=== PATIENT | male | born 1960 | race Caucasian/White ===

== ENCOUNTER 2024-09-11 09:51 | Outpatient (AMB) | payer OTHER, SELFPAY ==
[2024-09-11 10:02] VITALS: BP 132/84; PULSE 72; TEMP 37.2; O2SAT 97; BMI 33.3
--- NOTE | 2024-09-11 10:02 | MHC.PC.OV ---
Vital Signs 09/11/24 10:02 Height 5 ft 9 in Weight 225 lb 9.6 oz BMI 33.3 BP 132/84 Blood Pressure Location Lt brachial Position Sitting Pulse 72 Pulse Source Pulse Oximeter Temp 98.9 F Temp Source Oral Pulse Oximetry (%) 97 Oxygen Delivery Method Room Air Intake Visit Reasons: establish care Intake Note: Patient is a new patient here to establish care. Transferring care from Dr. Nesbitt in [place], [place]. Medical records have been requested and have been received. Sustainability Manager Required: No Accompanied by: Self / Same As Patient Allergies No Known Allergies [No Known Allergies*] Allergy (Verified 09/11/24 10:24) Medication List - Last Reconciled 09/11/24 by KATELYNN Marin glucosamine HCl 500 mg PO DAILY [id number] mcg (Centrum Silver Men) 1 tab PO DAILY rosuvastatin 20 mg PO DAILY Tobacco use date assessed: 09/11/24 Fall risk assessment: No Falls in past year Last assessed Fall Risk: 09/11/24 Dental Screening Dental Screen Date: 09/11/24 Did you have a dental visit in the last 12 months?: Yes Did you have a dental problem in the last 6 months where you did not have access to dental care?: No Was dental information given to patient?: Patient has dentist HPI establish care HPI Details Previous PCP: Dr. Nesbitt, in [place] Last visit: Last PE: July Specialist: no OBGYN:n/a Past medical history: hld/colonoscopy 3 years, recently done, hernia operation a year ago right groin. Medications: Family HX: brother prostate CA Problem: The patient is a 64-year-old male presenting with concerns regarding prostate health and nocturia. He reports nocturia, urinating two to three times a night, and is concerned about this due to his family history of prostate cancer. He has a known history of elevated cholesterol and underwent surgery for a right groin hernia approximately one year ago. His recent medical evaluations at the [facility] have included a physical, blood work, and a PSA test (0.84), the latter of which returned normal results. He undergoes colonoscopic evaluations every three years and last completed this [facility] few [facility]. The patient?s management of cholesterol involves medication obtained through [facility] services, though no other significant past medical history was noted besides the hernia repair. [facility] Medical History (Updated 09/15/24 @ 04:27 by KATELYNN Marin) HLD (hyperlipidemia) Surgical History History of anal fistulotomy Hx of hernia repair Hx of appendectomy Family History Brother Prostate cancer Daughter Breast cancer Social History Household Members: Spouse Housing: House Alcohol intake: current Alcohol intake frequency: a few times a week Alcohol type: wine Patient Tobacco Use Status: Never used Tobacco Tobacco use type: Cigarette e-Cigarette/Vaping Use: Never Used Second Hand Smoke Exposure: No service: Yes Current occupational status: retired Cognitive needs: No Hearing needs: Yes Vision needs: Yes (Glasses) Questionnaire PHQ-9 Over the last 2 weeks, how often have you been bothered by any of the following problems? 1. Little interest or pleasure in doing things: not at all 2. Feeling down, depressed, or hopeless: not at all 3. Trouble falling or staying asleep, or sleeping too much: not at all 4. Feeling tired or having little energy: not at all 5. Poor appetite or overeating: not at all 6. Feeling bad about yourself - or that you are a failure or have let yourself or your family down: not at all 7. Trouble concentrating on things, such as reading the newspaper or watching television: not at all 8. Moving or speaking so slowly that other people could have noticed. Or the opposite - being so fidgety or restless that you have been moving around a lot more than usual: not at all 9. Thoughts that you would be better off or of hurting yourself in some way: not at all Total score: 0 Depression Screening Interpretation: Negative Depression Screening Done: Yes 95915 - PHQ-9 Billing: Yes Source: Developed by Drs. Alex Monroy, Tamiko Gimenez, Fuad Barrios and colleagues, with an educational raj from [employer]. Thrive Questionnaire Date Thrive assessed: 09/11/24 I am a: Patient What is your living situation today?: I have a steady place to live Within the past 12 months, did the food you bought not last and you didn't have the money to get more?: Never true Within the past 12 months, did you worry whether your food would run out before you got money to buy more?: Never true Do you have trouble paying for medicines?: No Do you have trouble getting transportation to medical appointments?: No Do you have trouble paying your heating and electricity bill?: No Do you have trouble taking care of your child, family member or friend?: No Do you have trouble with day-to-day activities such as bathing, preparing meals, shopping, managing finances, etc.?: No Are you currently unemployed and looking for a job?: No Are you interested in more education?: No Please select the resources that you would like help with: None Currently or been in a relationship where the following occur: No concerns reported THRIVE Score: 0 AUDIT C Alcohol Use Questionnaire (AUDIT-C) 1. How often do you have a drink containing alcohol?: 4 or more times a week 2. How many drinks containing alcohol do you have on a typical day when you are drinking?: 1 or 2 3. How often do you have six or more drinks on one occasion?: Monthly Total Score: 6 Score Reviewed/Action Taken: Yes SHIV-7 AMB Questionnaire SHIV-7 Date SHIV - 7 assessed: 09/11/24 Feeling nervous, anxious, or on edge: 0 = Not at all Not being able to stop or control worryin = Not at all Worrying too much about different things: 0 = Not at all Trouble relaxin = Not at all Being so restless that it is hard to sit still: 0 = Not at all Becoming easily annoyed or irritable: 0 = Not at all Feeling afraid as if something awful might happen: 0 = Not at all Total SHIV-7 score (0-4 normal; 5-9 mild; 10-14 moderate; 15-21 severe): 0 Source: Developed by Drs. Alex Monroy, Tamiko Gimenez, Fuad Barrios and colleagues, with an educational raj from [employer]. SHIV-7 Assessment Billing SHIV-7 Assessment Tool: SHIV-7 Assessment 38415 Review of Systems Const Denies headache(s) Eyes Denies loss of vision ENT Denies vertigo, Denies dizziness, Denies headache(s) and Denies sore throat Card Denies chest pain, Denies leg edema and Denies lightheadedness Resp Denies cough, Denies hemoptysis and Denies wheezing GI Denies abdominal pain, Denies melena, Denies constipation, Denies diarrhea and Denies vomiting Denies dysuria, Reports nocturia and Denies urinary urgency Musc Denies arthralgias, Denies joint swelling, Denies numbness and Denies tingling Neuro Denies Abnormal speech present, Denies behavioral changes, Denies vertigo, Denies dizziness, Denies headache(s), Denies loss of vision, Denies memory loss, Denies numbness and Denies tingling Psych Denies anxiety, Denies behavioral changes, Denies depression, Denies memory loss and Denies panic attacks Claude/Lymph Denies easy bleeding and Denies easy bruising Aller/Immun Denies wheezing Physical exam (Primary Care) Vital Signs: Last Vital Signs Temp 98.9 F 09/11/24 10:02 Pulse 72 09/11/24 10:02 BP 132/84 09/11/24 10:02 Pulse Ox 97 09/11/24 10:02 Oxygen Delivery Method Room Air 09/11/24 10:02 BMI result Body Mass Index 33.3 Tobacco/Smoking Status: Tobacco use Status Tobacco use date assessed 09/11/24 09/11/24 10:20 Patient Tobacco Use Status Never used Tobacco 09/11/24 10:20 Tobacco use type Cigarette 09/11/24 10:20 e-Cigarette/Vaping Use Never Used 09/11/24 10:20 PHQ-9: PHQ-9 Score PHQ-9: Total score 0 09/11/24 10:29 Depression Screening Interpretation: Negative Thrive Assessment: Date of Thrive Assessment Date Thrive assessed 09/11/24 09/11/24 10:20 Currently or been in a relationship where the following occur: No concerns reported Const General: healthy appearing, no acute distress, alert and awake Nutritional Appearance: well nourished Orientation/consciousness: oriented to person, oriented to place and oriented to time HENMT Ears: TM's normal bilaterally General nose exam: Normal nasal mucous membranes and turbinates present Eyes Conjunctivae: conjunctivae normal Sclerae: sclerae normal Pupils: Equal, round and reactive pupils present Neck Neck: Yes no lymphadenopathy and Yes no JVD Thyroid: Thyroid normal Carotids: no bruits Resp Effort & Inspection: normal respiratory effort and not tachypneic Auscultation: no crackles, no rales, no rhonchi and no wheezes Cardio Rate: regular rate Rhythm: regular rhythm Heart sounds: no murmurs and normal S1 and S2 GI Palpation (GI): Soft to palpation, nontender, no hepatomegaly and no splenomegaly Auscultation: normal bowel sounds Skin General skin exam: no rashes or lesions noted and dry skin Neuro General: oriented to person, oriented to place and oriented to time Cranial nerves: Yes Equal, round and reactive pupils present Speech: No Abnormal speech present Gait exam (Neuro): Normal gait present Motor exam (neuro): no tremor noted Extrem Right upper extremity: full ROM Left upper extremity: full ROM Right lower extremity: full ROM; no edema Left lower extremity: full ROM; no edema Psych Mental Status: mental status grossly normal Speech and movement: Normal speech and movement present Affect: normal affect Attitude: cooperative Thought process: Normal thought process present Coding Level of Care Code New Pt Level 3 (63907) Diagnoses Nocturia R35.1 Additional Codes SHIV-7 Assessment Billing - SHIV-7 Assessment Tool: SHIV-7 Assessment 15221 ([id number]) PHQ-9 - 16602 - PHQ-9 Billing: Yes ([id number]) Time Spent (min) 33 Assessment & Plan Assessment & Plan (1) Nocturia: Code(s): R35.1 - Nocturia Category: Medical Plan: Urinating 2-3 times at night. [facility] Patient is concerned due to his brother's diagnosis of prostate cancer. He is requesting a urology referral
--- OUTSIDE RECORDS SUMMARY | 2024-09-11 10:43 | XMS_ITS | Continuity of Care Document ---
Author Name [facility] Organization [facility] Care Team Providers Care Audit Analyst Name Role Phone [facility] Unavailable Unavailable Problems Combined list of problems from Department of Defense and Veterans Affairs facilities. It does not include entries that were removed or entered in error. Problem Status Onset Date Problem Type Date of Resolution Comments Source Diverticulosis of sigmoid colon Active Condition [facility] Exposure to potentially hazardous substance (SCT [id number]) Active Condition Aug 14 Entered By: LENKA SORTO Comment: Entered automatically through [facility] Problem List documentation program [facility] Hypercholesterolemia Active Condition [facility] Impaired fasting glucose Active Condition [facility] Tinnitus Active Condition [facility] Diagnosis: ICD-10-CM 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 [facility] Diagnosis: ICD-10-CM Z46.1 Encounter for fitting and adjustment of hearing aid Active Diagnosis [facility] Diagnosis: ICD-10-CM Z46.0 Encounter for fit/adjst of spectacles and contact lenses Active Diagnosis [facility] Diagnosis: ICD-10-CM K40.90 Unil inguinal hernia, w/o obst or gangr, not spcf as recur Active Diagnosis [facility] Diagnosis: ICD-10-CM Z71.89 Other specified counseling Active Diagnosis [facility] Diagnosis: ICD-10-CM D12.6 Benign neoplasm of colon, unspecified Active Diagnosis [facility] Diagnosis: ICD-10-CM 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 Medication Details Route Status Patient Instructions Prescription Expires Prescription Number Last Dispense Date Ordering Provider Order Date Order Qty Source ATORVASTATI N [place] 40MG TAB TAKE ONE-HALF TABLET BY MOUTH ONCE DAILY FOR HIGH CHOLESTE ROL ORAL DISCONT INUED BY PROVIDE R 08/08/2024 [id number] FURCOLO,T RICKI 2023 45 [facility] MULTIVIT/OP [facility] AREDS2/LUTE IN/ZEAXANTH IN CAP/TAB TAKE 1 CAPSULE BY MOUTH TWICE DAILY IN THE MORNING AND EVENING, WITH FOOD ORAL ACTIVE 08/08/2025 [id number] FURCOLO,T RICKI 2024 120 [facility] MULTIVIT/OP [facility] AREDS2/LUTE IN/ZEAXANTH IN CAP/TAB TAKE 1 CAPSULE BY MOUTH TWICE DAILY IN THE MORNING AND EVENING, WITH FOOD ORAL DISCONT INUED 07/18/2024 [id number] HERI ADAMS 2023 120 [facility] ROSUVASTATI N CA 40MG TAB TAKE ONE-HALF TABLET BY MOUTH ONCE DAILY FOR CHOLESTE ROL *IN PLACE OF ATORVAST ATIN- INCORREC T MED* ORAL SUSPEND ED 08/08/2025 [id number] FURCOLO,T RICKI 2024 45 [facility] ROSUVASTATI N CA 40MG TAB TAKE ONE-HALF TABLET BY MOUTH ONCE DAILY FOR CHOLESTE ROL *IN PLACE OF ATORVAST ATIN- INCORREC T MED* ORAL DISCONT INUED 08/15/2024 [id number] FURCOLO,T RICKI 2023 45 [facility] Immunizations Combined list of available immunizations from the Department of Defense and Veterans Affairs facilities. Immunization Series Date Given Administered By Site Reaction Lot Number CVX Code Drug Research Pharmacist Status Comments Source ZOSTER RECOMBINANT 2024 JACQUELIN DASH RIGHT DELTO ID [id number] complet ed Completed Series, ADMINISTRonal [facility] [facility], [facility] [employer] [facility] INFLUENZA, UNSPECIFIED FORMULATION 2023 88 complet ed Completed Series, HISTORICA L INFORMATI ON - FROM PATIENT'S RECALL, [facility] [employer] [facility] INFLUENZA, UNSPECIFIED FORMULATION 2023 88 complet ed HISTORICA L INFORMATI ON - FROM OTHER REGISTRY, ' office [facility] [employer] [facility] Results Combined list of recent chemistry, hematology and other laboratory results from Department of [employer] and Veterans Affairs, ranging from 15 months to all on record, depending upon the facility. Order Name Results Value Reference Range Date Interpretation Specimen Comments Source PSA PROSTATE SPECIFIC AG [MASS/VOLUM E] IN SERUM OR PLASMA BY IMMUNOASSAY 0.84 ng/mL 0.00 - 4.00 08/13 Specimen Type: SERUM No comment entered. Ordering Provider: DILLON ZAMUDIO Report Released Date/Time: Aug 07, 2024 08:20 AM Reporting Lab: [address] [address] Performing Lab: [address] [address] [facility] LIPID PANEL FASTING CHOLESTEROL [MASS/VOLUM E] IN SERUM OR PLASMA 170 mg/dL 07/31 Specimen Type: SERUM No comment entered. Ordering Provider: DILLON ZAMUDIO Report Released Date/Time: Aug 08, 2023 02:36 PM Reporting Lab: [address] [address] Performing Lab: [address] [address] [facility] LIPID PANEL FASTING TRIGLYCERID E [MASS/VOLUM E] IN SERUM OR PLASMA 57 mg/dL 0 - 150 07/31 Specimen Type: SERUM No comment entered. Ordering Provider: FURCOLO,TIN A Report Released Date/Time: Aug 08, 2023 02:36 PM Reporting Lab: [facility] [address] [facility] [address] Performing Lab: [facility] [address] [facility] [address] [facility] LIPID PANEL FASTING CHOLESTEROL IN LDL [MASS/VOLUM E] IN SERUM OR PLASMA BY CALCULATION 108 mg/dL 0 - 129 07/31 Specimen Type: SERUM No comment entered. Ordering Provider: DILLON ZAMUDIO Report Released Date/Time: Aug 08, 2023 02:36 PM Reporting Lab: [facility] [address] [facility] [address] Performing Lab: [facility] [address] [facility] [address] [facility] [place] [facility] LIPID PANEL FASTING CHOLESTEROL .TOTAL/CHOL ESTEROL IN HDL [MASS RATIO] IN SERUM OR PLASMA 3.3 07/31 Specimen Type: SERUM No comment entered. Ordering Provider: DILLON ZAMUDIO Report Released Date/Time: Aug 08, 2023 02:36 PM Reporting Lab: [facility] [address] [facility] [address] Performing Lab: [facility] [address] [facility] [address] [facility] [place] [facility] LIPID PANEL FASTING CHOLESTEROL IN HDL [MASS/VOLUM E] IN SERUM OR PLASMA 51 mg/dL 40 - 60 07/31 Specimen Type: SERUM No comment entered. Ordering Provider: DILLON ZAMUDIO Report Released Date/Time: Aug 08, 2023 02:36 PM Reporting Lab: [facility] [address] [facility] [address] Performing Lab: [facility] [place] [facility] [address] [facility] [address] [facility] [place] [facility] BASIC METABOLIC PANEL (fasting) UREA NITROGEN [MASS/VOLUM E] IN SERUM OR PLASMA 20 mg/dL 7 - 25 07/31 Specimen Type: SERUM No comment entered. Ordering Provider: DILLON ZAMUDIO Report Released Date/Time: Aug 08, 2023 02:36 PM Reporting Lab: [facility] [place] [address] [address] Performing Lab: [facility] [address] [facility] [address] [facility] [place] [facility] BASIC METABOLIC PANEL (fasting) GLUCOSE [MASS/VOLUM E] IN SERUM OR PLASMA 102 mg/dL 65 - 100 07/31 H Specimen Type: SERUM No comment entered. Ordering Provider: DILLON ZAMUDIO Report Released Date/Time: Aug 08, 2023 02:36 PM Reporting Lab: [facility] [place] [address] [address] Performing Lab: [facility] [place] [address] [address] [facility] [place] [facility] BASIC METABOLIC PANEL (fasting) SODIUM [MOLES/VOLU ME] IN SERUM OR PLASMA 137 mmol/L 135 - 145 07/31 Specimen Type: SERUM No comment entered. Ordering Provider: DILLON ZAMUDIO Report Released Date/Time: Aug 08, 2023 02:36 PM Reporting Lab: [facility] [address] [address] Performing Lab: [facility] [address] [address] [facility] [place] [facility] BASIC METABOLIC PANEL (fasting) POTASSIUM [MOLES/VOLU ME] IN SERUM OR PLASMA 4.5 mmol/L 3.5 - 5.0 07/31 Specimen Type: SERUM No comment entered. Ordering Provider: DILLON ZAMUDIO Report Released Date/Time: Aug 08, 2023 02:36 PM Reporting Lab: [facility] [place] [facility] [address] [facility] [address] Performing Lab: [facility] [place] [address] [address] [facility] [place] [facility] BASIC METABOLIC PANEL (fasting) CHLORIDE [MOLES/VOLU ME] IN SERUM OR PLASMA 105 mmol/L 100 - 110 07/31 Specimen Type: SERUM No comment entered. Ordering Provider: DILLON ZAMUDIO Report Released Date/Time: Aug 08, 2023 02:36 PM Reporting Lab: [facility] [address] [address] Performing Lab: [facility] TRN [address] [address] [facility]N [facility]ENUSE [facility] BASIC METABOLIC PANEL (fasting) CARBON DIOXIDE, TOTAL [MOLES/VOLU ME] IN SERUM OR PLASMA 25 meq/L 20 - 30 07/31 Specimen Type: SERUM No comment entered. Ordering Provider: DILLON ZAMUDIO Report Released Date/Time: Aug 08, 2023 02:36 PM Reporting Lab: [facility] [address] Performing Lab: [facility]N [facility] [address] [facility]ITALRMAD[facility]N [facility] BASIC METABOLIC PANEL (fasting) CALCIUM [MASS/VOLUM E] IN SERUM OR PLASMA 9.3 mg/dL 8.5 - 10.2 07/31 Specimen Type: SERUM No comment entered. Ordering Provider: DILLON ZAMUDIO Report Released Date/Time: Aug 08, 2023 02:36 PM Reporting Lab: [facility]ITALRCITIZENS BAPTISTTRN [facility]ENUSE[address] [address] Performing Lab: [facility] TRN [facility]USE[address] [address] [facility] TRN [facility]ENUSE [facility] BASIC METABOLIC PANEL (fasting) CREATININE [MASS/VOLUM E] IN SERUM OR PLASMA 0.89 mg/dL 0.50 - 1.40 07/31 Specimen Type: SERUM No comment entered. Ordering Provider: DILLON ZAMUDIO Report Released Date/Time: Aug 08, 2023 02:36 PM Reporting Lab: [facility]ITALRCITIZENS BAPTISTTRN [facility]USE[address] [address] Performing Lab: [facility] TRN [facility]USE[address] [address] [facility] [place] [facility] BASIC METABOLIC PANEL (fasting) GLOMERULAR FILTRATION RATE/1.73 SQ M.PREDICTED [VOLUME RATE/AREA] IN SERUM, PLASMA OR BLOOD BY CREATININE- BASED FORMULA (CKD-EPI 2020) >90mL/ min 60 07/31 Specimen Type: SERUM No comment entered. Ordering Provider: DILLON ZAMUDIO Report Released Date/Time: Aug 08, 2023 02:36 PM Reporting Lab: [facility] [place] [address] [address] Performing Lab: [facility] [place] [address] [address] [facility] [place] [facility] CBC LEUKOCYTES [#/VOLUME] IN BLOOD BY AUTOMATED COUNT 6.52 10*3/u L 4.50 - 11.00 07/31 Specimen Type: BLOOD No comment entered. Ordering Provider: DILLON ZAMUDIO Report Released Date/Time: Jul 31, 2023 11:34 AM Reporting Lab: [facility] [address] [facility] [address] Performing Lab: [facility] [place] [address] [address] [facility] [place] [facility] CBC ERYTHROCYTE S [#/VOLUME] IN BLOOD BY AUTOMATED COUNT 4.72 10*6/u L 4.23 - 5.66 07/31 Specimen Type: BLOOD No comment entered. Ordering Provider: DILLON ZAMUDIO Report Released Date/Time: Jul 31, 2023 11:34 AM Reporting Lab: [facility] [address] [address] Performing Lab: [facility] [place] [address] [address] [facility] [place] [facility] CBC HEMOGLOBIN [MASS/VOLUM E] IN BLOOD 14.6 g/dL 12.8 - 17 07/31 Specimen Type: BLOOD No comment entered. Ordering Provider: DILLON ZAMUDIO Report Released Date/Time: Jul 31, 2023 11:34 AM Reporting Lab: [facility] [place] [facility] [address] [facility] [address] Performing Lab: [facility] [address] [facility] [address] [facility] [place] [facility] CBC HEMATOCRIT [VOLUME FRACTION] OF BLOOD BY AUTOMATED COUNT 42.9 39.2 - 50.4 07/31 Specimen Type: BLOOD No comment entered. Ordering Provider: DILLON ZAMUDIO Report Released Date/Time: Jul 31, 2023 11:34 AM Reporting Lab: [facility] [address] [facility] [address] Performing Lab: [facility] [place] [facility] [address] [facility] [address] [facility] [place] [facility] CBC MCV [ENTITIC VOLUME] BY AUTOMATED COUNT 90.9 fL 82 - 99 07/31 Specimen Type: BLOOD No comment entered. Ordering Provider: DILLON ZAMUDIO Report Released Date/Time: Jul 31, 2023 11:34 AM Reporting Lab: [facility] [place] [facility] [address] [facility] [address] Performing Lab: [facility] [place] [facility] [address] [facility] [address] [facility] [place] [facility] CBC MCHC [MASS/VOLUM E] BY AUTOMATED COUNT 34.0 g/dL 30.8 - 35.1 07/31 Specimen Type: BLOOD No comment entered. Ordering Provider: DILLON ZAMUDIO Report Released Date/Time: Jul 31, 2023 11:34 AM Reporting Lab: [facility] [place] [facility] [address] [facility] [address] Performing Lab: [facility] [place] [facility] [address] [facility] [address] [facility] [place] [facility] CBC PLATELETS [#/VOLUME] IN BLOOD BY AUTOMATED COUNT 243 10*3/u L 140 - 360 07/31 Specimen Type: BLOOD No comment entered. Ordering Provider: DILLON ZAMUDIO Report Released Date/Time: Jul 31, 2023 11:34 AM Reporting Lab: [facility] [place] [facility] [address] [facility] [address] Performing Lab: [facility] [place] [facility] [address] [facility] [address] [facility] CBC ERYTHROCYTE DISTRIBUTIO N WIDTH [RATIO] BY AUTOMATED COUNT 12.4 12.0 - 16.0 07/31 Specimen Type: BLOOD No comment entered. Ordering Provider: DILLON ZAMUDIO Report Released Date/Time: Jul 31, 2023 11:34 AM Reporting Lab: [facility] [place] [facility] [address] [facility] [address] Performing Lab: [facility] [place] [facility] [address] [facility] [address] [facility] [facility] CBC MCH [ENTITIC MASS] BY AUTOMATED COUNT 30.9 pg 26.2 - 32.6 07/31 Specimen Type: BLOOD No comment entered. Ordering Provider: DILLON ZAMUDIO Report Released Date/Time: Jul 31, 2023 11:34 AM Reporting Lab: [facility] [place] [facility] [address] [facility] [address] Performing Lab: [facility] [place] [facility] [address] [facility] [address] [facility] [place] [facility] LIPID PANEL FASTING CHOLESTEROL [MASS/VOLUM E] IN SERUM OR PLASMA 162 mg/dL 07/31 Specimen Type: SERUM No comment entered. Ordering Provider: DILLON ZAMUDIO Report Released Date/Time: Jul 31, 2023 11:34 AM Reporting Lab: [facility] [place] [facility] [address] [facility] [address] Performing Lab: [facility] [place] [facility] [address] [facility] [address] [facility] [place] [facility] LIPID PANEL FASTING TRIGLYCERID E [MASS/VOLUM E] IN SERUM OR PLASMA 45 mg/dL 0 - 150 07/31 Specimen Type: SERUM No comment entered. Ordering Provider: DILLON ZAMUDIO Report Released Date/Time: Jul 31, 2023 11:34 AM Reporting Lab: [facility] [place] [facility] [address] [facility] [address] Performing Lab: [facility] [place] [facility] [address] [facility] [address] [facility] [place] [facility] LIPID PANEL FASTING CHOLESTEROL IN LDL [MASS/VOLUM E] IN SERUM OR PLASMA BY CALCULATION 97 mg/dL 0 - 129 07/31 Specimen Type: SERUM No comment entered. Ordering Provider: DILLON ZAMUDIO Report Released Date/Time: Jul 31, 2023 11:34 AM Reporting Lab: [facility] [place] [facility] [address] [facility] [address] Performing Lab: [facility] [place] [facility] [address] [facility] [address] [facility] [place] [facility] LIPID PANEL FASTING CHOLESTEROL .TOTAL/CHOL ESTEROL IN HDL [MASS RATIO] IN SERUM OR PLASMA 2.9 07/31 Specimen Type: SERUM No comment entered. Ordering Provider: DILLON ZAMUDIO Report Released Date/Time: Jul 31, 2023 11:34 AM Reporting Lab: [facility] [place] [facility] [address] [facility] [address] Performing Lab: [facility] [place] [facility] [address] [facility] [address] [facility] W[facility]N [facility] LIPID PANEL FASTING CHOLESTEROL IN HDL [MASS/VOLUM E] IN SERUM OR PLASMA 56 mg/dL 40 - 60 07/31 Specimen Type: SERUM No comment entered. Ordering Provider: DILLON ZAMUDIO Report Released Date/Time: Jul 31, 2023 11:34 AM Reporting Lab: [facility] [place] [facility] [address] [facility] [address] Performing Lab: [facility] [place] [place] [facility] [address] [facility] [address] [facility] [place] [facility] LIVER FUNCTION PROTEIN [MASS/VOLUM E] IN SERUM OR PLASMA 7.4 g/dL 6.0 - 8.3 07/31 Specimen Type: SERUM No comment entered. Ordering Provider: DILLON ZAMUDIO Report Released Date/Time: Jul 31, 2023 11:34 AM Reporting Lab: [facility] [place] [facility] [address] [facility] [address] Performing Lab: [facility] [place] [facility] [address] [facility] [address] [facility] [place] [facility] LIVER FUNCTION ALBUMIN [MASS/VOLUM E] IN SERUM OR PLASMA 4.4 g/dL 3.5 - 5.0 07/31 Specimen Type: SERUM No comment entered. Ordering Provider: DILLON ZAMUDIO Report Released Date/Time: Jul 31, 2023 11:34 AM Reporting Lab: [facility] [place] [facility] [address] [facility] [address] Performing Lab: [facility] [place] [facility] [address] [facility] [address] [facility] [place] [facility] LIVER FUNCTION ALKALINE PHOSPHATASE [ENZYMATIC ACTIVITY/VO LUME] IN SERUM OR PLASMA 57 U/L 40 - 150 07/31 Specimen Type: SERUM No comment entered. Ordering Provider: DILLON ZAMUDIO Report Released Date/Time: Jul 31, 2023 11:34 AM Reporting Lab: [facility] [place] [facility] [address] [facility] [address] Performing Lab: [facility] [place] [facility] [address] [facility] [address] [facility] [place] [facility] LIVER FUNCTION ASPARTATE AMINOTRANSF ERASE [ENZYMATIC ACTIVITY/VO LUME] IN SERUM OR PLASMA 20 U/L 5 - 34 07/31 Specimen Type: SERUM No comment entered. Ordering Provider: DILLON ZAMUDIO Report Released Date/Time: Jul 31, 2023 11:34 AM Reporting Lab: [facility] [place] [facility] [address] [facility] [address] Performing Lab: [facility] [place] [facility] [address] [facility] [address] [facility] [place] [facility] LIVER FUNCTION ALANINE AMINOTRANSF ERASE [ENZYMATIC ACTIVITY/VO LUME] IN SERUM OR PLASMA 23 U/L 07/31 Specimen Type: SERUM No comment entered. Ordering Provider: DILLON ZAMUDIO Report Released Date/Time: Jul 31, 2023 11:34 AM Reporting Lab: [facility] [place] [facility] [address] [facility] [address] Performing Lab: [facility] [place] [facility] [address] [facility] [address] [facility] [place] [facility] LIVER FUNCTION BILIRUBIN.T OTAL [MASS/VOLUM E] IN SERUM OR PLASMA 0.5 mg/dL 0.2 - 1.2 07/31 Specimen Type: SERUM No comment entered. Ordering Provider: DILLON ZAMUDIO Report Released Date/Time: Jul 31, 2023 11:34 AM Reporting Lab: [facility] [place] [facility] [address] [facility] [address] Performing Lab: [facility] [place] [address] [address] [facility] [place] [facility] BASIC METABOLIC PANEL (fasting) UREA NITROGEN [MASS/VOLUM E] IN SERUM OR PLASMA 17 mg/dL 7 - 25 07/31 Specimen Type: SERUM No comment entered. Ordering Provider: DILLON ZAMUDIO Report Released Date/Time: Jul 31, 2023 11:34 AM Reporting Lab: [facility] [place] [facility] [address] [facility] [address] Performing Lab: [facility] [place] [address] [address] [facility] [place] [facility] BASIC METABOLIC PANEL (fasting) GLUCOSE [MASS/VOLUM E] IN SERUM OR PLASMA 119 mg/dL 65 - 100 07/31 H Specimen Type: SERUM No comment entered. Ordering Provider: DILLON ZAMUDIO Report Released Date/Time: Jul 31, 2023 11:34 AM Reporting Lab: [facility] [place] [facility] [address] [facility] [address] Performing Lab: [facility] [place] [address] [address] [facility] [place] [facility] BASIC METABOLIC PANEL (fasting) SODIUM [MOLES/VOLU ME] IN SERUM OR PLASMA 140 mmol/L 135 - 145 07/31 Specimen Type: SERUM No comment entered. Ordering Provider: DILLON ZAMUDIO Report Released Date/Time: Jul 31, 2023 11:34 AM Reporting Lab: [facility] [place] [facility] [address] [address] Performing Lab: [facility] [place] [facility] [address] [facility] [address] [facility] [place] [facility] BASIC METABOLIC PANEL (fasting) POTASSIUM [MOLES/VOLU ME] IN SERUM OR PLASMA 4.2 mmol/L 3.5 - 5.0 07/31 Specimen Type: SERUM No comment entered. Ordering Provider: DILLON ZAMUDIO Report Released Date/Time: Jul 31, 2023 11:34 AM Reporting Lab: [facility] [place] [address] [address] Performing Lab: [facility] [place] [address] [address] [facility] [place] [facility] METABOLIC PANEL (fasting) CHLORIDE [MOLES/VOLU ME] IN SERUM OR PLASMA 105 mmol/L 100 - 110 07/31 Specimen Type: SERUM No comment entered. Ordering Provider: DILLON ZAMUDIO Report Released Date/Time: Jul 31, 2023 11:34 AM Reporting Lab: [facility] [address] [address] Performing Lab: [facility] [address] [address] [facility] BASIC METABOLIC PANEL (fasting) CARBON DIOXIDE, TOTAL [MOLES/VOLU ME] IN SERUM OR PLASMA 24 meq/L 20 - 30 07/31 Specimen Type: SERUM No comment entered. Ordering Provider: DILLON ZAMUDIO Report Released Date/Time: Jul 31, 2023 11:34 AM Reporting Lab: [facility] [address] [address] Performing Lab: [facility] [address] [address] [facility] BASIC METABOLIC PANEL (fasting) CREATININE [MASS/VOLUM E] IN SERUM OR PLASMA 1.01 mg/dL 0.50 - 1.40 07/31 Specimen Type: SERUM No comment entered. Ordering Provider: DILLON ZAMUDIO Report Released Date/Time: Jul 31, 2023 11:34 AM Reporting Lab: [facility] [address] [address] Performing Lab: [facility] [address] [address] [facility] BASIC METABOLIC PANEL (fasting) GLOMERULAR FILTRATION RATE/1.73 SQ M.PREDICTED [VOLUME RATE/AREA] IN SERUM, PLASMA OR BLOOD BY CREATININE- BASED FORMULA (CKD-EPI 2020) 84 mL/min 60 07/31 Specimen Type: SERUM No comment entered. Ordering Provider: DILLON ZAMUDIO Report Released Date/Time: Jul 31, 2023 11:34 AM Reporting Lab: [facility] [address] [address] Performing Lab: [facility] [address] [address] [facility] HEPATITIS C ANTIBODY (HCV)-ARC HEPATITIS C VIRUS AB [PRESENCE] IN SERUM NON-RE ACTIVE 07/31 Specimen Type: SERUM Comment: Hep C Ab: No HCV antibody detected. If recent infection is suspected or other evidence suggests HCV infection, consider HCV nucleic acid testing Ordering Provider: DILLON ZAMUDIO Report Released Date/Time: Jul 31, 2023 11:34 AM Reporting Lab: [facility] [address] Performing Lab: [address] [address] [facility] Vital Signs Combined list of inpatient and outpatient Vital Signs from Department of Defense and Veterans Affairs, ranging from 12 months to all on record, depending upon the facility. Vital Sign Value Date Comments Source SYSTOLIC BLOOD PRESSURE 125 08/08/19 25 07:58:12 [facility] DIASTOLIC BLOOD PRESSURE 75 08/07/ 025 07:58:12 [facility] PULSE OXIMETRY 100 08/07/2024 07:58:12 [facility] WEIGHT 228 08/07/2024 07:58:12 [facility] BMI 34 kg/m2 08/07/2024 07:58:12 [facility] PAIN 0 08/07/2024 07:58:12 [facility] TEMPERATURE 97.9 08/07/2024 07:58:12 [facility] PULSE 64 08/07/2024 07:58:12 [facility] RESPIRATION 16 08/07/2024 07:58:12 [facility] Encounters Combined list of: 1) Encounters from Department of Veterans Affairs facilities going backup to the last 18 months, not all VA inpatient encounters are included; 2) Encounters from the Department of Defense facilities going backup to 280 months. Location Location Details Encounter Type Encounter Number Reason For Visit Attending Provider ADM Date DC Date Status Disposition Source [facility] Out[facility] Encounter [id number] 05/13 [facility] Encounter [id number] 06/03 [facility] Encounter [id number] 06/12 [facility] Out[facility] Encounter [id number] 06/18 [facility] HEARING AID EXAM BOTH EARS [id number] Diagnos is: ICD-10- CM H90.3 Sensori neural hearing loss, bilater al CAROLYNE JIMENES SSLYN 07/02 [facility] OFF/[place] CONSLTJ NEW/[place] 55 [id number] Diagnos is: ICD-10- CM H90.3 Sensori neural hearing loss, bilater al DANITA JOEMACHELLE PULIDOMAGDALENA R 07/03 [facility] [place] 1 [id number] Diagnos is: ICD-10- CM 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, right eye HERI ADAMS 07/17 [facility] FIT SPECTACLES MULTIFOCAL [id number] Diagnos is: ICD-10- CM Z46.0 Encount er for fit/adj st of spectac les and contact lenses HERI ADAMS 07/18 [facility] Out[facility] Encounter [id number] 07/28 [facility] Encounter [id number] 07/29 [facility] FIT SPECTACLES MULTIFOCAL [id number] Diagnos is: ICD-10- CM Z46.0 Encount er for fit/adj st of spectac les and contact lenses Valeria CLAROS 08/01 [facility] Out[facility] En[facility] [id number] 08/04 [facility] Encounter [id number] 08/07 [facility] Encounter [id number] 08/07 [facility] OFFICE O/P NEW HI 60 MIN [id number] Diagnos is: ICD-10- CM D12.6 Benign neoplas m of colon, unspeci fied FURCOLO,TI NA 08/07 [facility] Outpatient Encounter [id number] 08[facility]11 [facility] OFF/OP EST MAY X REQ PHY/QHP [id number] Diagnos is: ICD-10- CM Z71.89 Other specifi ed [facility] Valeria Singh 08/12 [facility] OFF[facility] O/P EST SF 10 MIN [id number] Diagnos is: ICD-10- CM K40.90 Unil inguina l hernia, w/o obst or gangr, not spcf as recur KIRSTEN LUO 08/12 [facility] Out[facility] Encounter [id number] 08/19 [facility] Out[facility] Encounter [id number] 08/19 [facility] RPR&REFITG SPECT XCP APHAKIA [id number] Diagnos is: ICD-10- CM Z46.0 Encount er for fit/adj st of spectac les and contact lenses Valeria CLAROS 08/27 [facility] Out[facility] Encounter [id number] 09/03 [facility] Out[facility] Encounter [id number] 09/03 [facility] HEARING SERVICE [id number] Diagnos is: ICD-10- CM Z46.1 Encount er for fitting and adjustm ent of hearing aid ROLANDO WONG 09/12 [facility] Out[facility] Encounter [id number] 12/11 [facility] Out[facility]counter [id number] 12/11 [facility] Out[facility] Encounter [id number] 02/19 [facility] Out[facility] Encounter [id number] 03/11 [facility] HEARING AID REPAIR/MOD IFYING [id number] Diagnos is: ICD-10- CM Z46.1 Encount er for fitting and adjustm ent of hearing aid SUKH MCLAIN 03/25 [facility] Out[facility] Encounter [id number] 05/11 [facility] Out[facility] Encounter [id number] 06/22 [facility] Out[facility] Encounter [id number] 06/22 [facility] Out[facility]counter [id number] 06/30 [facility] Out[facility]counter [id number] 07/01 [facility] Out[facility] Encounter [id number]/03 [facility] Out[facility] Encounter [id number] 08/03 [facility] OFFICE O/P EST MOD 30 MIN [id number] Diagnos is: ICD-10- CM K57.30 Dvrtclo s of lg int w/o perfora tion or abscess w/o bleedin g FURCOLO,TI NA 08/07 [facility] Social History Combined list of available smoking, tobacco, and other social history from Department of Defense and Veterans Affairs facilities. Social History Type Response Date Comment Sourc e Tobacco smoking status NMIS VA-TOBACCO NEVER USED CIGARETTES 08/07/2024 [facility] History of tobacco use VA-TOBACCO NEVER USED OTHER TYPE 08/07/2024 [facility] History of tobacco use VA-TOBACCO FORMER USER 07/30/2023 [facility] Plan of Care List of future care activities from Department [facility] facilities. Additional future care activities may be listed in the Assessment and Plan section. Date/Time Care Activity Care Activity Detail Facili ty 10/21/2024 AMBULATORY - MEDICINE AMBULATORY - MEDICI [facility] Advance Directives List of completed, amended, or rescinded Advance Directives on record at Department of [facility] facilities. An actual copy of the Directive is not included. Date Advance Directive Provider Source 08/05/2023 ADVANCE DIRECTIVE KATELYN BOOTH [facility]
--- OUTSIDE RECORDS SUMMARY | 2024-09-11 10:43 | XMS_ITS | Clinical Summary ---
Author Organization [facility] [address] [facility] Address [address] [place] [address] Phone Care Team Providers Care Administrative Assistant Receptionist Name Role Phone Glenys Tam DO Primary Care Provider [phone] Allergies No known active allergies Medications rosuvastatin (CRESTOR) 40 mg tablet Take 0.5 tablets (20 mg total) by mouth 1 (one) time each day. 08/15/2023 Active Encounters Date Type Department Care Team Description 07/01/2024 Telephone Gastroenterology - [address] [address] Juan Eisenberg [place] 06/30/2024 9:57 AM EST Anesthesia Event [facility] [address] [place] [phone] Salomón Chua DO Chang, Ling, CRNA 06/30/2024 9:35 AM EST - 06/30/2024 11:59 PM EST Hospital Encounter [facility] [address] [place] [phone] Jaron Dean MD Chang, Ling, CRNA Spencer, Mark A, MD Personal history of other colon polyps; Family history of colonic polyps Discharge Disposition: Home or Self Care 06/30/2024 Telephone Gastroenterology - [address] [phone] Juan Eisenberg MA from Last 3 Months Surgical History Surgery Date Site/Laterality Comments COLONOSCOPY US GROIN/INGUINAL HERNIA HERNIA REPAIR Medical History Medical History Date Comments Hyperlipidemia Hearing loss Tinnitus Social History Tobacco Use Types Packs/Day Years Used Date Smoking Tobacco: Former Smokeless Tobacco: Never Alcohol Use Standard Drinks/Week Comments Not Currently 0 (1 standard drink = 0.6 oz pur e alcohol) Interpersonal Safety Answer Date Record ed Physical Abuse 06/30/2024 Verbal Abuse 06/30/2024 Sex and Gender Information Value Date Recorded Sex Assigned at Male 06/30/2024 9:31 AM EST Legal Sex Male 1:48 PM EST Gender Identity Male 06/30/2024 9:31 AM EST Sexual Orientation Straight 06/30/2024 9: 31 AM EST Obstetrics History Last Filed Vital Signs Vital Sign Reading Time Taken Comments Blood Pressure 107/80 06/30/2024 10:54 AM EST Pulse 64 06/30/2024 10:54 AM EST Temperature 35.9 ??C (96.6 ??F) 06/30/2024 9:46 AM ES T Respiratory Rate 14 06/30/2024 10:54 AM EST Oxygen Saturation 98% 06/30/2024 10:54 AM EST Inhaled Oxygen Concentration - - Weight 100 kg (221 lb) 06/30/2024 9:46 AM EST Height 175.3 cm (5' 9 ) 06/30/2024 9:46 AM EST Body Mass Index 32.64 06/30/2024 9:46 AM EST Plan of Treatment Health Maintenance Due Date Last Done Comments DTaP,Tdap,and Td Vaccines (1 - Tdap) 09/12/1979 Pneumococcal Vaccine: 50+ Years (1 of 1 - PCV) 2010 Zoster Vaccines (1 of 2) 2010 Cholesterol Screening (Lipid Panel) 04/10/2022 Depression Screening 04/10/2022 HIV Screening 04/10/2022 Hepatitis C Screening 04/10/2022 Social Influencers of Health Screening 04/10/2022 Colorectal Cancer Screening: Colonoscopy 06/30/2034 06/30/2024, 05/10/2021 RSV Immunization Adult Patients (1 - 1-dose 75+ series) 09/12/2035 COVID-19 Vaccine Completed 02/10/2024, 09/2022, 05/18/2022, Additional history exists Influenza Vaccine Completed 02/10/2024, , 02/14/2023, Additional history exists HIB Vaccines Aged Out No longer eligi ble based on patient's age to complete this topic HPV Vaccines Aged Out No longer eligi ble based on patient's age to complete this topic Hepatitis A Vaccines Aged Out No long er eligible based on patient's age to complete this topic Hepatitis B Vaccines Aged Out No long er eligible based on patient's age to complete this topic IPV Vaccines Aged Out No longer eligi ble based on patient's age to complete this topic MMR Vaccines Aged Out No longer eligi ble based on patient's age to complete this topic Meningococcal ACWY Vaccine Aged Out N o longer eligible based on patient's age to complete this topic Meningococcal B Vaccine Aged Out No l onger eligible based on patient's age to complete this topic Pneumococcal Vaccine: Pediatrics (0 to 5 Years) and At-Risk Patients (6 to 64 Years) Aged Out No longer eligible based on patient's age to complete this topic RSV Immunization Patients Under 20 months Aged Out No longer eligible based on patient's age to complete this topic Varicella Vaccines Aged Out No longer eligible based on patient's age to complete this topic Procedures Procedure Name Priority Date/Time Associated Diagnosis Comments COLONOSCOPY Routine 06/30/2024 10:33 AM EST Personal history of other colon polyps Family history of colonic polyps TISSUE EXAM Routine 06/30/2024 10:25 AM EST Personal history of other colon polyps Family history of colonic polyps from Last 3 Months Results * COLONOSCOPY Anesthesia - MAC; [facility] END[facility]COPY (06/30/2024 10:33 AM EST) Anatomical Region Laterality Modality Other 06/30/2024 9:40 AM EST Impressions 06/30/2024 10:36 AM EST - One 11 mm polyp at the hepatic flexure, removed with ? a cold snare. Resected and retrieved. ? - The examination was otherwise normal on direct and ? retroflexion views. Recommendation: ?- Await pathology results. ? - Repeat colonoscopy in 3 years for surveillance. Narrative 06/30/2024 10:36 AM EST [facility] GI Patient Name: Hadley Licona Procedure Date: 06/30/2024 9:40 AM Date of : 1960 Age: 63 Room: ROOM 14 Gender: Male Note Status: Finalized Attending MD: Jaron Dean MD, Procedure Date No Time: 06/30/2024 Procedure: ? Colonoscopy Indications: ? Colon cancer screening in patient at increased risk: ? Family history of 1st-degree relative with colon ? polyps before age 60 years, High risk colon cancer ? surveillance: Personal history of colonic polyps Providers: ? Jaron Dean MD Referring MD: ?Jaron Dean MD Medicines: ? Propofol per Anesthesia Complications: ? No immediate complications. Estimated Blood Loss: ? Estimated blood loss: none. Procedure: ? Pre-Anesthesia Assessment: ? - ASA Grade Assessment: II - A patient with mild ? systemic disease. ? After I obtained informed consent, the scope was ? passed under direct vision. Throughout the procedure, ? the patient's blood pressure, pulse, and oxygen ? saturations were monitored continuously.The Olympus ? Colonoscope was introduced through the anus and ? advanced to the cecum, identified by appendiceal ? orifice and ileocecal valve. The colonoscopy was ? performed without difficulty. The patient tolerated ? the procedure well. The quality of the bowel ? preparation was good. Findings: ?The perianal and digital rectal examinations were ? normal. ? An 11 mm polyp was found in the hepatic flexure. The ? polyp was sessile. The polyp was removed with a cold ? snare. Resection and retrieval were complete. ? The exam was otherwise without abnormality on direct ? and retroflexion views. Procedure Code(s): ? --- Professional --- ? 93571, Colonoscopy, flexible; with removal of ? tumor(s), polyp(s), or other lesion(s) by snare ? technique Diagnosis Code(s): ? --- Professional --- ? Z83.71, Family history of colonic polyps ? Z86.010, Personal history of colonic polyps ? D12.3, Benign neoplasm of transverse colon (hepatic ? flexure or splenic flexure) CPT copyright 2020 [employer]. All rights reserved. The codes documented in this report are preliminary and upon profiler hand review may be revised to meet current compliance requirements. Jaron Dean MD 06/30/2024 10:36:51 AM This report has been signed electronically.Jaron Dean MD Number of Addenda: 0 Note Initiated On: 06/30/2024 9:40 AM Scope In: Scope Out: ? Endoscopy Department at [facility] - [address] [place] [address], ? [place] [address] Procedure Note Jaron Dean MD - 06/30/2024 [facility] Patient Name: Hadley Licona Procedure Date: 06/30/2024 9:40 AM Date of : 1960 Age: 63 Room: ROOM 14 Gender: Male Note Status: Finalized Attending MD: Jaron Dean MD, Procedure Date No Time: 06/30/2024 Procedure: Colonoscopy Indications: Colon cancer screening in patient at increasedrisk: Family history of 1st-degree relative with colon polyps before age 60 years, High risk colon cancer surveillance: Personal history of colonic polyps Providers: Jaron Dean MD Referring MD: Jaron Dean MD Medicines: Propofol per Anesthesia Complications: No immediate complications. Estimated Blood Loss: Estimated blood loss: none. Procedure: Pre-Anesthesia Assessment: - ASA Grade Assessment: II - A patient with mild systemic disease. After I obtained informed consent, the scope was passed under direct vision. Throughout theprocedure, the patient's blood pressure, pulse, and oxygen saturations were monitored continuously.The Olympus Colonoscope was introduced through the anus and advanced to the cecum, identified by appendiceal orifice and ileocecal valve. The colonoscopy was performed without difficulty. The patient tolerated the procedure well. The quality of the bowel preparation was good. Findings: The perianal and digital rectal examinations were normal. An 11 mm polyp was found in the hepatic flexure.The polyp was sessile. The polyp was removed with acold snare. Resection and retrieval were complete. The exam was otherwise without abnormality ondirect and retroflexion views. Procedure Code(s): --- Professional --- 38886, Colonoscopy, flexible; with removal of tumor(s), polyp(s), or other lesion(s) by snare technique Diagnosis Code(s): --- Professional --- Z83.71, Family history of colonic polyps Z86.010, Personal history of colonic polyps D12.3, Benign neoplasm of transverse colon (hepatic flexure or splenic flexure) CPT copyright 2021 [employer]. All rights reserved. The codes documented in this report are preliminary and upon profiler hand reviewmay be revised to meet current compliance requirements. Jaron Dean MD 06/30/2024 10:36:51 AM This report has been signed electronically.Jaron Dean MD Number of Addenda: 0 Note Initiated On: 06/30/2024 9:40 AM Scope In: Scope Out: Endoscopy Department at [facility] - [address] [place] [phone] IMPRESSION: - One 11 mm polyp at the hepatic flexure, removed with a cold snare. Resected and retrieved. - The examination was otherwise normal on directand retroflexion views. Recommendation: - Await pathology results. - Repeat colonoscopy in 3 years for surveillance. us Jaron Dean MD GI~PROCEDURE ORDERABLES Fin al Result * Tissue exam (06/30/2024 10:25 AM EST) Final Diagnosis A. Large intestine, Hepatic flexure, polyp x1: - Tubular adenoma. 07/01/2024 9:41 AM EST [facility] Gross Description A. Large intestine, Hepatic flexure, polyp x1: Labeled hepatic flexure polyp x 1 . Received in formalin are seven irregular ragland mucosal tissue fragments, ranging from 0.1 cm 0.4 cm in greatest dimension, which are wrapped in paper and submitted in toto in one cassette, seven pieces, multiple levels on one slide. DEBI 07/01/2024 9:41 AM EST [facility] Disclaimer Unless otherwise specified, all tissue is 10% NB formalin fixed and paraffin embedded. 07/01/2024 9:41 AM [facility] Tissue Structure of right colic flexure / Unknown 06/30/2024 10:25 AM EST 06/30/2024 11:51 AM EST Jaron Dean MD LAB PATHOLOGY ORDERABLES Fi nal Result [facility] [address] [place] [address], from Last 3 Months Insurance [facility] Care Teams Administrative Assistant Receptionist Relationship Specialty Start Date End Date Glenys Tam DO [address] [place] [address] Dr Harris [address] [place] [place]ks [address] PCP - General Internal Medicine 05/18/24
--- OUTSIDE RECORDS SUMMARY | 2024-09-11 10:44 | XMS_ITS ---
Author Name [facility] [facility] [place] [facility] [place] Address [address] [place] [address] Care Team Providers Care Program Management Intern Name Role Phone PARKER ZAMUDIO Primary Care Provider Unavailabl e Selected Encounter This section includes the information on record at [place] for the Encounter. Date/Time Encounter Type Encounter Description Reason Provider Source Aug 07, 2024 08:00 AM OFFICE O/P EST MOD 30 MIN PRIMARY CARE/MEDICINE ICD-10-CM K57.30 Dvrtclos of lg int w/o perforation or abscess w/o bleeding FURCOLO,PARKER IHE Encounter Template Text not used by [place] Assessments - Encounter Diagnoses This section includes the primary and secondary diagnoses documented for the Encounter. Date/Time Primary/Secondary Diagnosis Diagnosis Name Provider Source Aug 07, 2024 08:40 AM PRIMARY Dvrtclos of lg int w/o perforation or abscess w/o bleeding FURCOLO,PARKER [facility] [place] [facility] Aug 07, 2024 08:40 AM SECONDARY Contact with and exposure to other hazardous substances FURCOLO,PARKER [facility] [place] [facility] Aug 07, 2024 08:40 AM SECONDARY Encounter for immunization HARDY,JACQUELIN [facility] [place] [facility] Aug 07, 2024 08:40 AM SECONDARY Impaired fasting glucose FURCOLO,PARKER [facility] [place] [facility] Aug 07, 2024 08:40 AM SECONDARY Localized swelling, mass and lump, neck FURCOLO,PARKER [facility] [place] [facility] Aug 07, 2024 08:40 AM SECONDARY Nocturia FURCOLO,PARKER [facility] [place] [facility] Aug 07, 2024 08:40 AM SECONDARY Pure hypercholesterolem ia, unspecified FURCOLO,PARKER [place] [facility] [place] [facility] Aug 07, 2024 08:40 AM SECONDARY Tinnitus, unspecified ear FURCOLO,PARKER [facility] Plan of Treatment: Future Appointments (+ 6 months) and Future Tests (+/- 45 days) The Plan of Treatment section includes future care activities for the patient from all [place] [facility]. This section includes future appointments and future orders which are active, pending or scheduled. Future Appointments This section includes appointments that were scheduled to occur 6 months from the date of the Encounter, up to a maximum of 20 appointments. The data comes from all [facility] facilities. Appointment Date/Time Appointment Type Appointme nt Facility Name Oct 21, 2024 09:00 AM AMBULATORY - MEDICINE [facility] Nov 04, 2024 09:00 AM AMBULATORY MEDICINE [facility] Active, Pending, and Scheduled Orders This section includes a listing of several types of active, pending, and scheduled orders, including clinic medications orders, diagnostic test orders, procedure orders and consult orders; where the start date of the order is 45 days before the date of the Encounter or 45 days after the date of theEncounter. The data comes from all [facility]. Test Date/Time Test Type Test Details Facility Name Aug 07, 2024 08:38 AM Consult Order OTOLARYNGO LOGY/ENT ONE Cons Inbound [employer] Log[employer] Specialist's Choice [facility] Lab Results: +/- 30 days of the encounter This section includes the Chemistry and Hematology Lab Results on record with [place] for the patient. Radiology Reports and Pathology Reports are provided separately, in subsequent sections. Lab Results This section contains the Chemistry/Hematology Results that were resulted 30 days before or 30 daysafter the date of the Encounter. Date/Time Source Result Type Result - Unit Interpretation Reference Range Specimen Type Comment Aug 13, 2024 01:27 PM [facility] PSA SERUM Specimen Type: SERUM No comment entered. Ordering Provider: PARKER ZAMUDIO Report Released Date/Time: Aug 07, 2024 08:20 AM [facility] [address] [facility] [id number] Performing Lab: [facility] [address] [facility] [id number] PSA 0.84 ng/mL 0.00-4.00 Jul 31, 2024 08:07 AM [facility] LIPID PANEL FASTING SERUM Specimen Type: SERU M No comment entered. Ordering Provider: PARKER ZAMUDIO Report Released Date/Time: Aug 08, 2023 02:36 PM Reporting Lab: [facility] [address] [id number] Performing Lab: [address] [address] CHOLESTEROL 170 mg/dL TRIGLYCERIDE 57 mg/dL 0-150 LDL calculated 108 mg/dL 0-129 CHOL/HDL 3.3 HDL CHOLESTEROL 51 mg/dL 40-60 Jul 31, 2024 08:07 AM [facility] BASIC METABOLIC PANEL (fasting) SERUM Specime n Type: SERUM No comment entered. Ordering Provider: PARKER ZAMUDIO Report Released Date/Time: Aug 08, 2023 02:36 PM Reporting Lab: [facility] [address] [facility] [id number] Performing Lab: [address] [address] UREA NITROGEN 20 mg/dL 7-25 GLUCOSE 102 mg/dL H 65-100 SODIUM 137 mmol/L 135-145 POTASSIUM 4.5 mmol/L 3.5-5.0 CHLORIDE 105 mmol/L 100-110 CO2 25 meq/L 20-30 CALCIUM 9.3 mg/dL 8.5-10.2 CREATININE, Serum 0.89 mg/dL 0.50-1.40 eGFR(CKD-EPI 2020) >90 mL/min >60 Vital Signs: All taken on the encounter date This section contains inpatient and outpatient Vital Signs collected on the date of the Encounter. Date/Time Temperature Pulse Blood Pressure Respiratory Rate SP02 Pain Height Weight Body Mass Index Source Aug 07, 2024 07:58 AM 97.9 64 125/75 16 100 0 228 34 [facility] Immunizations: All administered on the encounter date This section contains immunizations associated to the Encounter. Immunization Series Date Issued Administered By Site Reaction Lot Number [id number] Drug Counseling Specialist Comment(s) Source ZOSTER RECOMBINANT Aug 07, 2024 JACQUELIN DASH RIGHT DELTO ID [id number] GLAXOSMITHKLI NATO Completed Series, ADMINISTERE D AT [place], [facility] Social History: Smoking Status (Most current) and Tobacco Use (All prior to encounter date) This section includes the most current, and the historical, smoking and tobacco- related health factors from the [place] facility where the Encounter took place. Current Smoking Status This section includes the most current smoking, or tobacco-related health factor, from the [place] facility where the Encounter took place. Date/Time Current Smoking Status Comment Facil ity Aug 07, 2024 08:00 AM [place]-TOBACCO NEVER U SED CIGARETTES [facility] Tobacco Use History This section includes a history of the smoking, or tobacco-related health factors, that were collected on or before the date of the Encounter. The data comes from the [place] facility where the Encounter took place. Date/Time Smoking Status/Tobacco Use Comment F acility Aug 07, 2024 08:00 AM [place]-TOBACCO NEVER U SED OTHER TYPE [facility] Jul 30, 2023 10:42 AM [place]-TOBACCO FORMER USER [facility] Jul 30, 2023 10:42 AM [place]-TOBACCO QUIT 15 YRS OR MORE [facility] Advance Directives: All historical and current Section Date Range: From patient's date of to the date document was created. This section includes ALL of a patient's completed or amended [place] Advance and Rescinded Directives. The entries below indicate that a directive exists for the patient, but an actual copy is not included with this document. The data comes from all [place] facilities. Date Advance Directives Provider Source Aug 05, 2023 ADVANCE DIRECTIVE KATELYN BOOTH [facility] Encounter Notes: All associated encounter notes This section contains the clinical notes associated to the Encounter. Date/Time Encounter Note(s) Provider Source Aug 07, 2024 08:00 AM PHYSICIAN NOTE: LOCAL TITLE: MD NOTE STANDARD TITLE: PHYSICIAN NOTE DATE OF NOTE: AUG 07, 2024@08:00 ENTRY DATE: AUG 07, 2024@08:00:45 AUTHOR: PARKER ZAMUDIOIGNER: URGENCY: STATUS: COMPLETED MARGAUX IBANEZ is a 63 year old WHITE MALE who is being seen today in primary care to establish care. CARE TEAM Community Primary Care Provider: will be seeing new PCP in [facility] Specialists: Optometry Community Specialists: SANDRA Mccarthy HISTORY PERIOD OF SERVICE - [place] SERVICE CONNECTED % - 10 [place] Percent: 10% Rated Disabilities: IMPAIRED HEARING (0%-SC) TINNITUS (10%-[place]) [employer], spliced telephone cables, 1980- 1986, [place], [place], [place], [place]. no camp [place], lead cables. HISTORY OF PRESENT ILLNESS Patient presents today for routine yearly follow-up left neck fullness/swelling- has been there for years, wants evaluated, nontender brother recently diagnosed with prostate ca. pateint does have nocturia x3 - no change in years. brother is on tadalafil 6 mg daily right inguinal hernia surgery last year- every onc ein awhile it bothers him- mildly uncomfortable, no buldge or swelling RELEVANT PAST MEDICAL HISTORY Active problems - Computerized Problem List is the source for the followin. Diverticulosis of sigmoid colon 2. Impaired fasting glucose 3. Tinnitus 4. Hypercholesterolemia PAST SURGICAL HISTORY appendectomy rectal fistula repair vascectomy right inguinal hernia surgery- 2023 FAMILY HISTORY Mother: alive at 93- toe amputated, DM Father: Limb Girdle muscle dystrophy Siblings: 5 brother- muscular dystrophy brother- prostate cancer SOCIAL HISTORY Background: born in [place] and raised in [place], [place]. [place] [facility] [place] Sexual Orientation: heterosexual Marital Status: Children: 2, one step-daughter, one biological Lives with: Employment Status: retired 2022, [employer] Alcohol Use: occasional, never problematic Tobacco Use: never Drug Use: none Exercise: works around house, swims regularly, treadmill ALLERGIES none MEDICATIONS Active and Recently Outpatient Medications (excluding Supplies): Active Outpatient Medications Status 1) ROSUVASTATIN CA 40MG TAB TAKE ONE-HALF TABLET BY MOUTH ONCE ACTIVE DAILY FOR CHOLESTEROL *IN PLACE OF ATORVASTATIN- INCORRECT MED* Inactive Outpatient Medications Status 1) MULTIVIT/OPHTH AREDS2/LUTE/ZEAX CAP/TAB TAKE 1 CAPSULE BY MOUTH TWICE DAILY IN THE MORNING AND EVENING, WITH FOOD Indication: FOR VITAMIN SUPPLEMENTATION 2 Total Medications REVIEW OF SYMPTOMS POSITIVE FOR: nocturia x 3 NEGATIVE FOR: CONSTITUTION: no weight loss/gain, fatigue, fevers, night sweats HEENT: no vision problems, hearing loss,swallowing difficulties, sinus pain CV: no chest pain, palpitations, dyspnea on exertion, orthopnea RESP: no cough, shortness of breath, wheezing GI: no abdominal pain, N/V/D, constipation, blood in stool, normal appetite : no urinary frequency, nocturia, hematuria MUSC: no joint pain, joint swelling, muscle aches NEURO: no headaches, dizziness, memory loss, tremor, weakness PSYCH: no depression, anxiety, suicidal or homicidal thoughts SKIN: no rash, new skin lesions PHYSICAL EXAM Vitals: - - - - - - - B/P: 125/75 (08/07/2024 07:58) pulse: 64 (08/07/2024 07:58) resp: 16 (08/07/2024 07:58) temp: 97.9 F [36.6 C] (08/07/2024 07:58) Ht: 69 in [175.3 cm] (08/08/2023 13:48) Wgt: 228 lb [103.42 kg] (08/07/2024 07:58) BMI: BMI: 33.7 Exam: - - - - - - - General: A&O x 3, no acute distress, normal affect and mood Neck: normal thyroid, normal carotids- no bruits left anterior neck- soft 2 cm fullness- freely mobile, no cervical adenopathy CV: RRR S1S2, no murmur Resp: LCTA bilat, no wheezing, rales or rhonchi Neuro: grossly intact, no visible tremor, normal memory and speech Extremities: normal movement of extremities, normal gait, normal strength no LE edema RECENT LABS LAB CHEMISTRY & HEMATOLOGY Collection DT Specimen Test Name Result Units Ref Range 07/31/2024 08:07 SERUM CALCIUM 9.3 mg/dL 8.5 - 10.2 CREATININE, Serum 0.89 mg/dL 0.50 - 1.40 eGFR(CKD-EPI 2020 >90 mL/min Ref: >=60 SODIUM 137 mmol/L 135 - 145 POTASSIUM 4.5 mmol/L 3.5 - 5.0 CHLORIDE 105 mmol/L 100 - 110 CO2 25 mEq/L 20 - 30 UREA NITROGEN 20 mg/dL 7 - 25 GLUCOSE 102 H mg/dL 65 - 100 CHOLESTEROL 170 mg/dL <7 - 199 TRIGLYCERIDE 57 mg/dL 0 - 150 LDL calculated 108 mg/dL 0 - 129 CHOL/HDL 3.3 HDL CHOLESTEROL 51 mg/dL 40 - 60 ASSESSMENT AND PLAN Active problems - Computerized Problem List is the source for the followin. Diverticulosis of sigmoid colon 2. Impaired fasting glucose- slightly improved 3. Tinnitus 4. Hypercholesterolemia- at goal, on rosuvastatin 5. nocturia x 3- chronically, brother recently diagnosed with prostate ca. will check PSA next week after 5 days of no sexual activity. discussed if benign BPH- first line would be tamsulosin. brother is on daily low dose tadalfil. recomemdn if psa elevated- coudl see urology to discuss. 6. left neck swelling- soft, freely mobile, no cervical adenopathy, has been there for about 3-4 years. nontender. he would like to see ENT. will make referral HEALTH MAINTENANCE Colonoscopy - [facility]21[facility]- tubular adenoma Abdominal Aortic Aneurysm Screening - n/a- never smoker Prostate screening - will do in 1 week Tetanus: due every 10 years Pneumonia Vacccine: Flu Vaccine: due yearly Covid Vaccine: due yearly FOLLOW UP f/u in 1 year with fasting labs- lipids and BMP f/u in 3 mo for 2nd shingles vaccine VISIT TYPE: a MODERATE complexity visit where 30 minutes was spent in direct patient care, review of records and documentation. Toxic Exposure Screening: The /caregiver was asked if they believe the Theresa experienced any toxic exposure(s), such as Airborne Hazards and Open Burn Pit, [place] War related exposures, Agent [place], Radiation, contaminated water at [place] or other such exposures, while serving in the Armed Forces. Theresa/caregiver believes the was exposed to the following while serving in the Armed Forces: Other exposures: Comment: lilia anna Theresa/caregiver was made aware of educational resources and printed information was offered and provided if desired. Theresa/caregiver has no health or medical concerns related to their concern of environmental exposure. No questions at this time /caregiver was informed of local points of contact. Contact information for local resources: Benefits/Claim for Disability Compensation Questions:National VBA [place] Healthcare Enrollment: [facility] Eligibility direct dialed at [phone] Registry: [facility] Coordinator ext [phone] The following connections were provided to the Theresa/caregiver: No connections needed at this time /sri/ PARKER ZAMUDIO D.O. PHYSICIAN Signed: 08/07/2024 08:40 PARKER ZAMUDIO [place] [facility] [place] [facility] Aug 07, 2024 07:55 AM PREVENTIVE MEDICINE NURSING NOTE: LOCAL TITLE: CLINICAL REMINDERS/NURSING STANDARD TITLE: PREVENTIVE MEDICINE NURSING NOTE DATE OF NOTE: AUG 07, 2024@07:55 ENTRY DATE: AUG 07, 2024@07:55:39 AUTHOR: JACQUELIN DASH EXP COSIGNER: URGENCY: STATUS: COMPLETED Homelessness/Food Insecurity Screen: In the past 2 months, have you been living in stable housing that you own, rent, or stay in as part of a household? Yes - Living in stable housing. Are you worried or concerned that in the next 2 months you may NOT have stable housing that you own, rent, or stay in as part of a household? No - Not worried about housing near future The Theresa reports the following: Within the past 12 months, you worried whether your food would run out before you got money to buy more. Never true Within the past 12 months, the food you bought just didn't last and you didn't have money to get more. Never true Depression Screening: Perform PHQ-2 A PHQ-2 screen was performed. The score was 0 which is a negative screen for depression. Over the past two weeks, how often have you been bothered by the following problems? 1. Little interest or pleasure in doing things Not at all 2. Feeling down, depressed, or hopeless Not at all Tobacco Use Screening: The patient has never smoked cigarettes. The patient has never used other types of tobacco. Alcohol Use Screen (AUDIT-C): Alcohol Screen: SCREEN FOR ALCOHOL (AUDIT-C) An alcohol screening test (AUDIT-C) was negative (score=2). 1. How often did you have a drink containing alcohol in the past year? Consider a drink to be a 12 ounce can or bottle of regular beer, 8 ounces of malt liquor, a 5 ounce glass of table wine, or a 1.5 ounce shot of liquor (like scotch, gin, or vodka). Two to four times a month 2. How many drinks containing alcohol did you have on a typical day when you were drinking in the past year? One or two drinks 3. How often did you have six or more drinks on one occasion in the past year? Never Herpes Zoster (Shingles) Vaccine: Administered: ZOSTER RECOMBINANT Date Administered: Aug 07, 2024 08:00 Series: Complete Counseling Specialist: TraceSecurity Lot: [id number] Exp Date: Jun 12, 2026 [facility]: [phone] Admin Route/Site: INTRAMUSCULAR/RIGHT DELTOID Dosage: 0.5mL Vaccine Information Statement(s): RECOMBINANT ZOSTER VACCINE VIS Jun 16, 2021 ([place]) Order By: Policy Administered By: Jacquelin Dash The Recombinant Zoster Vaccine Information Statement (VIS) was reviewed with the patient/caregiver which lists the benefits and risks of the vaccine and the risks of not receiving the Recombinant Zoster vaccine. The patient/caregiver denied any prior severe reaction to this vaccine or its components or a severe allergic reaction, such as anaphylaxis, to any vaccine or any injectable therapy. The patient/caregiver gave verbal consent to receive the vaccine. Suicide Screen: C-SSRS Screening [place] Suicide Severity Rating Scale (C-SSRS) screener 1. Over the past month, have you wished you were or wished you could go to sleep and not wake up? No 2. Over the past month, have you had any actual thoughts of killing yourself? No 3. Over the past month, have you been thinking about how you might do this? Response not required due to responses to other questions. 4. Over the past month, have you had these thoughts and had some intention of acting on them? Response not required due to responses to other questions. 5. Over the past month, have you started to work out or worked out the details of how to kill yourself? Response not required due to responses to other questions. 6. If yes, at any time in the past month did you intend to carry out this plan? Response not required due to responses to other questions. 7. In your lifetime, have you ever done anything, started to do anything, or prepared to do anything to end your life (for example, collected pills, obtained a gun, gave away valuables, went to the roof but didn't jump)? No 8. If YES, was this within the past 3 months? Response not required due to responses to other questions. Advance Directive Screen MH AD: Patient has an Advance Directive on file at this [facility]. No updates are needed at this time. The patient received education about Advance Directives and written notification of his/her rights. Influenza Immunization: The patient has received the seasonal influenza vaccine for the current season at another location. Documented: INFLUENZA, UNSPECIFIED FORMULATION Historical Date Administered: Feb 20, 2024 Series: Complete Outside Location: Outside Healthcare Provider Information Source: FROM PATIENT'S RECALL Tdap Immunization: The patient declines to receive the recommended dose of Tdap vaccine. Immunization: TDAP Refusal Reason: PATIENT DECISION Patient refuses all immunization(s) in the TDAP group Date Documented: 08/07/24 08:10 /sri/ JACQUELIN DASH LPN License Practical Nurse Signed: 08/07/2024 08:11 JACQUELIN DASH [facility] Jul 30, 2024 01:24 PM NURSING NOTE: LOCAL TITLE: NURSING NOTE STANDARD TITLE: NURSING NOTE DATE OF NOTE: JUL 30, 2024@13:24 ENTRY DATE: JUL 30, 2024@13:25:06 AUTHOR: JACQUELIN DASH EXP COSIGNER: URGENCY: STATUS: COMPLETED spoke with the , reminded of scheduled apt for next saturday and that blood work is needed. /nestor DASH LPN License Practical Nurse Signed: 07/30/2024 13:25 JACQUELIN DASH [facility]
== END 2024-09-11 10:54 | disposition home or self-care (01) ==
LOC: HO.HMCH 09:54
PROVIDERS: PCP Internal Medicine
DX: R35.1 Nocturia (principal)

== ENCOUNTER → 2024-09-11 09:51 | Outpatient (BNVA) | payer OTHER, SELFPAY | PROVIDERS: PCP Internal Medicine | DX: R35.0 Frequency of micturition (principal); R35.1 Nocturia | CPT/HCPCS: 96127; 99202 ==